=== PATIENT | male | born 1940 | race Caucasian/White ===

== ENCOUNTER 2020-02-27 06:00 | Inpatient (IN) | payer MEDICARE, OTHER ==
[2020-02-19 12:16] VITALS: BMI 19.8
[2020-02-27] MEDS ORDERED: CELECOXIB 200 MG CAPSULE PO ONE (06:32)
[2020-02-27] MEDS ORDERED: CEFAZOLIN 2 GM in DEXTROSE 5%-WATER - 50 ML IVPB ONE (06:32)
[2020-02-27] MEDS ORDERED: TRANEXAMIC ACID 1000 MG/10 ML VIAL IVPUSH ONE (06:32)
[2020-02-27] MEDS ORDERED: SODIUM CHLORIDE 0.9% P/F 10 ML VIAL IJ ONE (07:01)
[2020-02-27] MEDS ORDERED: MIDAZOLAM HCL 2 MG/2 ML SINGLE DOSE VIAL ONE (07:01)
[2020-02-27] MEDS ORDERED: BUPIVACAINE LIPOSOME/PF (EXPAREL) 266 MG/20 ML VIAL ONE (07:01)
[2020-02-27] MEDS ORDERED: ceFAZolin SODIUM 1 GM VIAL ONE (07:02)
[2020-02-27] MEDS ORDERED: VANCOMYCIN 1,000 MG VIAL (RESTRICTED TO ID ONLY) ONE (07:02)
[2020-02-27] MEDS ORDERED: LIDOCAINE 1% P/F 10 MG/ML VIAL ONE (07:34)
[2020-02-27] MEDS ORDERED: BUPIVACAINE HCL/PF 0.5% (5MG/ML) 10 ML VIAL ONE (07:46)
[2020-02-27] MEDS ORDERED: PROPOFOL 20 ML ONE ×5 (07:47)
[2020-02-27] MEDS ORDERED: MAG HYDROX/AL HYDROX/SIMETH 30 ML UNIT-DOSE CUP PO PRN (07:57)
[2020-02-27] MEDS ORDERED: ONDANSETRON 4 MG/2 ML VIAL IVPUSH PRN ×2 (07:57→10:46)
[2020-02-27] MEDS ORDERED: MAGNESIUM HYDROX 2400MG/30ML ORAL SUSPENSION 30 ML CUP PO PRN (07:57)
[2020-02-27] MEDS ORDERED: LACTATED RINGERS SOLUTION 1,000 ML IV SCH (08:00)
[2020-02-27] MEDS ORDERED: oxyCODONE HCL 5 MG TABLET PO PRN (10:44)
[2020-02-27] MEDS ORDERED: ACETAMINOPHEN 325 MG TABLET (FP) PO ONE (11:20)
[2020-02-27] MEDS ORDERED: ACETAMINOPHEN 325 MG TABLET (FP) PO SCH (12:00)
[2020-02-27] MEDS: oxyCODONE HCL 5 MG TABLET PO PRN ×2 (14:16→20:20)
[2020-02-27] MEDS: FINASTERIDE 5 MG TABLET (FP) PO SCH (14:18)
[2020-02-27 15:10] LABS: HIV INTERPRETATION NEGATIVE (NEGATIVE)
[2020-02-27] MEDS: CEFAZOLIN 2 GM/D5W 2 GM/50 ML ML IVPB SCH (15:40)
[2020-02-27] MEDS ORDERED: ACETAMINOPHEN 500 MG TABLET (FP) PO PRN (16:43)
[2020-02-27] MEDS ORDERED: MORPHINE SULFATE 2 MG/ML VIAL IVPUSH ONE (16:49)
[2020-02-27] MEDS: SENNOSIDES/DOCUSATE COMBO (SENNA PLUS) TABLET (UD) PO SCH (21:37)
[2020-02-27] MEDS: TAMSULOSIN HCL 0.4 MG CAP PO SCH (21:37)
[2020-02-27] MEDS: PANTOPRAZOLE 40 MG TABLET PO SCH (21:37)
[2020-02-27] MEDS: oxyCODONE HCL 10 MG SUSTAINED ACTING TABLET PO SCH (21:37)
[2020-02-28] MEDS: CEFAZOLIN 2 GM/D5W 2 GM/50 ML ML IVPB SCH (00:02)
[2020-02-28 07:39] LABS: ALBUMIN 3.1 g/dl (3.4-5.0); BILIRUBIN,TOTAL 0.9 mg/dl (0.2-1); CALCIUM 8.3 mg/dl (8.5-10); CREATININE 0.7 mg/dl (0.55-1.3); POTASSIUM 3.5 mmol/L (3.5-5.1); TOT PROT 6.7 g/dl (6.4-8.2)
[2020-02-28 08:57] LABS: HEMOGLOBIN 12.1 GM/dl (11.7-16.9); MCH 26.7 pg (25.7-33.7); MCHC 32.7 g/dl (32.0-35.9); MEAN CELL VOLUME 81.8 fl (80-96); MEAN PLT VOLUME 8.9 fl (7.5-11.1); PLATELET COUNT 203 K/MM3 (134-434); RBC 4.53 M/mm3 (4.00-5.60); RDW 15.8 % (11.9-15.9); WHITE BLOOD COUNT 7.5 K/mm3 (4.0-10.8)
[2020-02-28] MEDS: SENNOSIDES/DOCUSATE COMBO (SENNA PLUS) TABLET (UD) PO SCH ×2 (09:25→21:24)
[2020-02-28] MEDS: MULTIVITAMINS (DAILY MVI) TABLET (FP) PO SCH (09:25)
[2020-02-28] MEDS: ASPIRIN 325 MG TABLET PO SCH (09:25)
[2020-02-28] MEDS: FINASTERIDE 5 MG TABLET (FP) PO SCH (09:26)
[2020-02-28] MEDS: oxyCODONE HCL 10 MG SUSTAINED ACTING TABLET PO SCH ×2 (09:26→21:23)
[2020-02-28] MEDS: oxyCODONE HCL 5 MG TABLET PO PRN (12:23)
[2020-02-28] MEDS: TAMSULOSIN HCL 0.4 MG CAP PO SCH (21:24)
[2020-02-28] MEDS: PANTOPRAZOLE 40 MG TABLET PO SCH (21:24)
[2020-02-29 06:42] VITALS: PULSE 109
[2020-02-29 08:15] LABS: HEMATOCRIT 33.1 % (35.4-49); HEMOGLOBIN 10.8 GM/dl (11.7-16.9); MCH 26.9 pg (25.7-33.7); MCHC 32.6 g/dl (32.0-35.9); MEAN CELL VOLUME 82.5 fl (80-96); MEAN PLT VOLUME 9.1 fl (7.5-11.1); PLATELET COUNT 177 K/MM3 (134-434); RBC 4.02 M/mm3 (4.00-5.60); RDW 15.4 % (11.9-15.9); WHITE BLOOD COUNT 7.7 K/mm3 (4.0-10.8)
[2020-02-29 09:15] VITALS: BP 107/49; TEMP 100
[2020-02-29] MEDS: FINASTERIDE 5 MG TABLET (FP) PO SCH (09:36)
[2020-02-29] MEDS: SENNOSIDES/DOCUSATE COMBO (SENNA PLUS) TABLET (UD) PO SCH (09:36)
[2020-02-29] MEDS: oxyCODONE HCL 10 MG SUSTAINED ACTING TABLET PO SCH (09:36)
[2020-02-29] MEDS: MULTIVITAMINS (DAILY MVI) TABLET (FP) PO SCH (09:36)
[2020-02-29] MEDS: ASPIRIN 325 MG TABLET PO SCH (09:36)
== END 2020-02-29 12:16 | disposition home health service (06) | DRG 470 ==
LOC: FM/S 06:00
PROVIDERS: ADMIT Orthopaedic Surgery; ATTEND Orthopaedic Surgery
PROC: 8E0Y0CZ Robotic Assisted Procedure of Lower Extremity, Open Approach (ICD-10-PCS; 2020-02-27)
PROC: 0SRC0J9 Replacement of Right Knee Joint with Synthetic Substitute, Cemented, Open Approach (ICD-10-PCS; principal; 2020-02-27 08:28)
DX: M17.11 Unilateral primary osteoarthritis, right knee (principal); K21.9 Gastro-esophageal reflux disease without esophagitis; N40.0 Benign prostatic hyperplasia without lower urinary tract symptoms; I35.1 Nonrheumatic aortic (valve) insufficiency
CPT/HCPCS: 36415; 73560-TC-RT-FY; 80053; 84460; 85027; 86803; 87340; 87389; 88305-TC; 88311-TC; 94760; 97010-GP; 97116-GP; 97163-GP

== ENCOUNTER 2020-07-09 11:23 | Inpatient (IN) | payer OTHER ==
[~2020-07-09 11:23] MED LIST: CEFAZOLIN 2 GM in DEXTROSE 5%-WATER - 50 ML IVPB ONE; TRANEXAMIC ACID 1000 MG/10 ML VIAL IVPUSH ONE
[2020-07-09] MEDS ORDERED: LIDOCAINE HCL/PF 2% SDV 5ML VIAL ONE (11:29)
[2020-07-09] MEDS ORDERED: PROPOFOL 20 ML ONE ×2 (11:29)
[2020-07-09] MEDS ORDERED: ceFAZolin SODIUM 1 GM VIAL ONE ×2 (11:29→12:21)
[2020-07-09] MEDS ORDERED: SODIUM CHLORIDE 0.9% P/F 10 ML VIAL IJ ONE (11:37)
[2020-07-09] MEDS ORDERED: BUPIVACAINE LIPOSOME/PF (EXPAREL) 266 MG/20 ML VIAL ONE (11:37)
[2020-07-09] MEDS ORDERED: MIDAZOLAM HCL 2 MG/2 ML SINGLE DOSE VIAL ONE (11:37)
[2020-07-09] MEDS: CELECOXIB 200 MG CAPSULE PO ONE (12:00)
[2020-07-09] MEDS ORDERED: VANCOMYCIN 1,000 MG VIAL (RESTRICTED TO ID ONLY) ONE (12:22)
[2020-07-09] MEDS ORDERED: oxyCODONE HCL 5 MG TABLET PO PRN (13:11)
[2020-07-09] MEDS ORDERED: ONDANSETRON 4 MG/2 ML VIAL IVPUSH PRN ×2 (13:11→13:51)
[2020-07-09] MEDS ORDERED: LACTATED RINGERS SOLUTION 1,000 ML IV SCH ×2 (13:15→14:00)
[2020-07-09] MEDS ORDERED: DEXAMETHASONE SOD PHOSPHATE 4 MG/1 ML VIAL ONE (13:48)
[2020-07-09] MEDS ORDERED: ONDANSETRON 4 MG/2 ML VIAL ONE (13:48)
[2020-07-09] MEDS ORDERED: MAGNESIUM HYDROX 2400MG/30ML ORAL SUSPENSION 30 ML CUP PO PRN (13:51)
[2020-07-09] MEDS ORDERED: MAG HYDROX/AL HYDROX/SIMETH 30 ML UNIT-DOSE CUP PO PRN (13:51)
[2020-07-09] MEDS ORDERED: EPHEDRINE SULFATE/0.9% NACL/PF 50 MG/10 ML SYRINGE NR ONE (15:21)
[2020-07-09] MEDS: ACETAMINOPHEN 1000 MG/100 ML VIAL (NON FORMULARY) IVPB ONE (15:50)
[2020-07-09] MEDS ORDERED: ACETAMINOPHEN INJECTION 100 ML IVPB ONE (15:51)
[2020-07-09] MEDS: ACETAMINOPHEN 325 MG TABLET (FP) PO SCH (20:22)
[2020-07-09] MEDS: oxyCODONE HCL 5 MG TABLET PO PRN (20:22)
[2020-07-09] MEDS: CEFAZOLIN 2 GM/D5W 2 GM/50 ML ML IVPB SCH (21:37)
[2020-07-09] MEDS: TAMSULOSIN HCL 0.4 MG CAP PO SCH (21:37)
[2020-07-09] MEDS: SENNOSIDES/DOCUSATE COMBO (SENNA PLUS) TABLET (UD) PO SCH (21:38)
[2020-07-09] MEDS: oxyCODONE HCL 10 MG SUSTAINED ACTING TABLET PO SCH (21:38)
[2020-07-10] MEDS ORDERED: ACETAMINOPHEN 325 MG TABLET (FP) ONE (03:22)
[2020-07-10] MEDS: ACETAMINOPHEN 325 MG TABLET (FP) PO SCH ×4 (03:23→22:00)
[2020-07-10] MEDS: oxyCODONE HCL 5 MG TABLET PO PRN ×2 (06:38→12:45)
[2020-07-10] MEDS: CEFAZOLIN 2 GM/D5W 2 GM/50 ML ML IVPB SCH (06:38)
[2020-07-10 07:51] LABS: HEMATOCRIT 30.5 % (35.4-49); HEMOGLOBIN 10.1 GM/dl (11.7-16.9); MCH 25.5 pg (25.7-33.7); MCHC 32.9 g/dl (32.0-35.9); MEAN CELL VOLUME 77.4 fl (80-96); MEAN PLT VOLUME 8.8 fl (7.5-11.1); PLATELET COUNT 173 K/MM3 (134-434); RBC 3.95 M/mm3 (4.00-5.60); RDW 15.5 % (11.9-15.9); WHITE BLOOD COUNT 7.7 K/mm3 (4.0-10.8)
[2020-07-10] MEDS: ASPIRIN 325 MG TABLET PO SCH (08:27)
[2020-07-10] MEDS: SENNOSIDES/DOCUSATE COMBO (SENNA PLUS) TABLET (UD) PO SCH ×2 (09:50→22:01)
[2020-07-10] MEDS: oxyCODONE HCL 10 MG SUSTAINED ACTING TABLET PO SCH ×2 (09:51→22:00)
[2020-07-10] MEDS: PANTOPRAZOLE 40 MG TABLET PO SCH (09:54)
[2020-07-10] MEDS ORDERED: PATIENT'S OWN MEDICATION (NON-FORMULARY) (Omeprazole [Omeprazole] 20 MG Tablet.Dr) PO SCH (10:00)
[2020-07-10] MEDS: MULTIVITAMINS (DAILY MVI) TABLET (FP) PO SCH (10:04)
[2020-07-10] MEDS: FINASTERIDE 5 MG TABLET (FP) PO SCH (10:04)
[2020-07-10] MEDS: TAMSULOSIN HCL 0.4 MG CAP PO SCH (22:01)
[2020-07-10 22:47] VITALS: TEMP 98.2
[2020-07-11] MEDS: ACETAMINOPHEN 325 MG TABLET (FP) PO SCH ×2 (03:37→08:21)
[2020-07-11] MEDS: oxyCODONE HCL 5 MG TABLET PO PRN (05:58)
[2020-07-11 06:32] VITALS: BP 115/47; PULSE 75
[2020-07-11] MEDS: CELECOXIB 200 MG CAPSULE PO ONE (07:34)
[2020-07-11] MEDS: ACETAMINOPHEN 1000 MG/100 ML VIAL (NON FORMULARY) IVPB ONE (07:34)
[2020-07-11 07:52] LABS: HEMATOCRIT 28.5 % (35.4-49); HEMOGLOBIN 9.4 GM/dl (11.7-16.9); MCH 25.3 pg (25.7-33.7); MCHC 32.9 g/dl (32.0-35.9); MEAN PLT VOLUME 8.8 fl (7.5-11.1); PLATELET COUNT 151 K/MM3 (134-434); RBC 3.71 M/mm3 (4.00-5.60); RDW 15.2 % (11.9-15.9); WHITE BLOOD COUNT 6.1 K/mm3 (4.0-10.8)
[2020-07-11] MEDS: ASPIRIN 325 MG TABLET PO SCH (08:20)
[2020-07-11] MEDS: SENNOSIDES/DOCUSATE COMBO (SENNA PLUS) TABLET (UD) PO SCH (09:42)
[2020-07-11] MEDS: oxyCODONE HCL 10 MG SUSTAINED ACTING TABLET PO SCH (09:42)
[2020-07-11] MEDS: MULTIVITAMINS (DAILY MVI) TABLET (FP) PO SCH (09:42)
[2020-07-11] MEDS: FINASTERIDE 5 MG TABLET (FP) PO SCH (09:42)
[2020-07-11] MEDS: PANTOPRAZOLE 40 MG TABLET PO SCH (09:43)
== END 2020-07-11 12:41 | disposition home health service (06) | DRG 470 ==
LOC: FM/S 11:23
PROVIDERS: ADMIT Orthopaedic Surgery; ATTEND Orthopaedic Surgery
PROC: 8E0Y0CZ Robotic Assisted Procedure of Lower Extremity, Open Approach (ICD-10-PCS; 2020-07-09)
PROC: 0SRD0J9 Replacement of Left Knee Joint with Synthetic Substitute, Cemented, Open Approach (ICD-10-PCS; principal; 2020-07-09 13:58)
DX: M17.12 Unilateral primary osteoarthritis, left knee (principal); K21.9 Gastro-esophageal reflux disease without esophagitis; N40.0 Benign prostatic hyperplasia without lower urinary tract symptoms
CPT/HCPCS: 36415; 73560-TC-LT-FY; 85027; 94760; 97010-GP; 97116-GP; 97162-GP; J0131